=== PATIENT | male | born 1975 | race African-American/Black ===

== ENCOUNTER 2023-04-24 15:17 | Outpatient (REF) | payer MEDICAID, SELFPAY ==
--- NOTE | ~2023-04-24 | US_ITS ---
EXAMINATION: US SCROTUM CLINICAL INFORMATION: Enlarged scrotal sac. COMPARISON: None available. TECHNIQUE: A sonogram of the scrotum was performed assessing fair-scale appearance and color Doppler flow. Spectral Doppler analysis of the arterial and venous flow were performed in the testes bilaterally. FINDINGS: RIGHT: Right testicle measures 5.8 x 3.6 x 3.6 cm, volume 39.7 mL. 3 mm intratesticular calcification. Spectral Doppler analysis of the arterial and venous flow is normal in the right testis. Tiny right epididymal cyst. Right epididymal appendix. No right varicocele is seen. Complex right hydrocele. LEFT: Left testicle measures 5.4 x 3.0 x 3.2 cm, volume 27.5 mL. 2 mm interest testicular calcification. Left testicular appendix. Spectral Doppler analysis of the arterial and venous flow is normal in the left testis. Left epididymal head is normal in size. No left varicocele is seen. Complex left hydrocele. US/US scrotum IMPRESSION: Bilateral testicular microlithiasis. Bilateral complex hydroceles. Tiny right epididymal cyst.
== END 2023-04-24 15:18 | disposition home or self-care (01) ==
LOC: HO.US 15:17
PROVIDERS: Visit Provider Pediatrics
DX: N50.89 Other specified disorders of the male genital organs (principal)
CPT/HCPCS: 76870

== ENCOUNTER 2023-05-18 12:57 | Outpatient (AMB) | payer MEDICAID, SELFPAY ==
--- NOTE | 2023-05-18 13:08 | MHC.OFFVIS ---
Intake Vital Signs 05/18/23 13:11 Height 5 ft 10.08 in Weight 195 lb BMI 27.9 BP 142/92 H Blood Pressure Location Lt brachial Position Sitting Pulse 106 H Intake Visit Reasons: Enlargement of scrotal sac, ? hernia Intake Note: This patient presents for an assessment for question of hernia. Patient c/o; reports abdominal pain, reports discomfort. Grades 1 6 Tutor Required: Yes Grades 1 6 Tutor Language: Equities Trader Name: Fallon Information Interpreted: non-clinical & clinical Accompanied by: Self / Same As Patient Allergies No Known Allergies Allergy (Verified 05/18/23 13:11) Medication List - Last Reconciled 05/18/23 by Sanchez Lou MD No Known Home Meds HPI Enlargement of scrotal sac, ? hernia HPI Details 47-year-old male referred for a right inguinal hernia. He has noticed this reducible mass on his right groin all the way to the scrotum for the past 4-5 years now. He describes discomfort. He does state that this becomes bigger with physical exertion. He denies GI complaints. He denies any other medical complaints. [facility] Medical History (Updated 05/18/23 @ 13:49 by Sanchez Lou MD) Right inguinal hernia Surgical History No pertinent past surgical history Social History Alcohol intake: never Patient Tobacco Use Status: Never used Tobacco Review of Systems Const Denies chills and Denies fever(s) Card Denies chest pain, Denies dyspnea and Denies dyspnea on exertion Resp Denies cough, Denies dyspnea and Denies dyspnea on exertion GI Denies hematochezia and Denies change in bowel habits Denies hematuria and Denies difficulty urinating Musc Denies back pain and Denies limited range of motion Neuro Denies focal weakness and Denies convulsions Psych Denies depression and Denies mood swings Physical Exam Vital Signs: Last Vital Signs Pulse 106 H 05/18/23 13:11 BP 142/92 H 05/18/23 13:11 BMI result Body Mass Index 27.9 Const General: comfortable and no acute distress Orientation/consciousness: patient oriented x3 Neck Neck: Yes no lymphadenopathy Resp Auscultation: clear to auscultation bilaterally Cardio Rhythm: regular rhythm GI Other: Large right inguinal scrotal hernia, reducible , reproducible with Valsalva Palpation (GI): Soft to palpation, nontender and no guarding Neuro General: patient oriented x3 Assessment & Plan Assessment & Plan (1) Right inguinal hernia: Code(s): K40.90 - Unilateral inguinal hernia, without obstruction or gangrene, not specified as recurrent Plan: He has a large right inguinoscrotal hernia. This actually is reducible. I had a long discussion with him about the technique of repair with mesh. I discussed the risks including but not limited to bleeding, infections, recurrence, injury to other organs including bowel, vas deferens and the testicle, as well as the benefits and alternatives. He says he wants to proceed with repair as this has been ongoing for many years. Coding Level of Care Code New Pt Level 3 (13412) Diagnoses Right inguinal hernia K40.90
[2023-05-18 13:11] VITALS: BP 142/92; PULSE 106; BMI 27.9
== END 2023-05-18 13:54 | disposition home or self-care (01) ==
PROVIDERS: PCP Nurse Practitioner Primary Care; Visit Provider Surgery
DX: K40.90 Unilateral inguinal hernia, without obstruction or gangrene, not specified as recurrent (principal)
CPT/HCPCS: 99203

== ENCOUNTER → 2023-05-18 12:57 | Outpatient (BNVA) | payer MEDICAID, SELFPAY | PROVIDERS: PCP Nurse Practitioner Primary Care; Visit Provider Surgery | DX: K40.90 Unilateral inguinal hernia, without obstruction or gangrene, not specified as recurrent (principal) | CPT/HCPCS: 99202 ==

== ENCOUNTER 2023-06-13 07:10 | Day surgery (SDC) | payer MEDICAID, SELFPAY ==
[2023-05-26 12:24] VITALS: BMI 28.0
--- NOTE | 2023-05-29 08:34 | HO.ANESPROP2 ---
Documented by User: Tigist Fiore NP 06/06/23 13:34 HPI - Anesthesia Eval Consult details Narrative: 47yo M for Open Hernia Repair Inguinal w/mesh, 06/13/23 [facility] Active Problems Active Problems: All Active Problems (Updated 05/18/23 @ 13:49 by Sanchez Lou MD) Right inguinal hernia (Acute) Past Medical History Medical History Right inguinal hernia Surgical History Surgical History No pertinent past surgical history Social History Social History Alcohol intake: never Patient Tobacco Use Status: Never used Tobacco Use of substances other than those prescribed or required for medical reasons: No Are you DNR?: No Advance Directives: No Advance Directives Information Provided: Yes Advance Directives on File: No Poor oral hygiene: No Meds Allergies Allergy/AdvReac Type Severity Reaction Status Date / Time No Known Allergies Allergy Verified 05/18/23 13:11 Home Medications Medication Instructions Recorded Confirmed Last Taken Type No Known Home Meds 05/18/23 05/26/23 Unknown History Exam Height,Weight and Vital Signs: Height 5 ft 10 in Weight 88.451 kg Assessment and Plan Assessment Anesthesia Assessment: Chart Reviewed Documented by User: Aurora Draper MD 06/13/23 08:37 [facility] Past Medical History Medical History Right inguinal hernia Functional capacity: bed bound Surgical History Surgical History No pertinent past surgical history History of Problems with Anesthesia: No Social History Social History Alcohol intake: never Patient Tobacco Use Status: Never used Tobacco Use of substances other than those prescribed or required for medical reasons: No Are you DNR?: No Advance Directives: No Advance Directives Information Provided: Yes Advance Directives on File: No Poor oral hygiene: No Meds Allergies Allergy/AdvReac Type Severity Reaction Status Date / Time No Known Allergies Allergy Verified 05/18/23 13:11 Home Medications Medication Instructions Recorded Confirmed Last Taken Type No Known Home Meds 05/18/23 05/26/23 Unknown History Exam Airway Mallampati Class: II TM Dist: >3cm Neck ROM: Full Loose/Missing/Broken Teeth: No Heart: RRR Lungs: CTA Assessment and Plan Assessment Anesthesia Assessment: Anesthesia Plan Discussed Final Anesthetic Review History of Problems with Anesthesia: No NPO: Yes ASA Class: I Final Preanesthetic Review: Meds/Allgs Chart Reviewed, Consent Obtained/Reviewed and Anes Risks/Benef Reviewed Patient Risk: Low Procedure Risk: Low Anesthetic Plan Anesthetic Plan: GA Disposition: Standard PACU
[2023-06-13] VITALS (7 sets, daily range): BP systolic 124–149; BP diastolic 88–109; PULSE 63–95; RESP 14–16; TEMP 36.3–37.2; O2SAT 96–98; BMI 28.4
[2023-06-13] MEDS: Lactated Ringers 1,000 ML 100 ML IVCONT (08:17)
--- NOTE | 2023-06-13 08:42 | MHC.SHP ---
Pre-Procedural Eval Section A Date of Service: 06/13/23 The patient is an INPATIENT: No Changes since office visit: Yes Cold of Flu in the past 2 weeks, Yes New Medical Problems, Yes Changes in Medication and Yes Patient answered all questions The History & Physical has been completed within 30 days and I have reviewed it.: Yes Section B Chief Complaint: Unilateral inguinal hernia, without obstruction or Allergies: Allergies Allergy/AdvReac Type Severity Reaction Status Date / Time No Known Allergies Allergy Verified 05/18/23 13:11 Plan I have reviewed the history and physical and performed a pertinent physical examination on my patient. No changes have occurred unless specified. Time Spent With Patient Time: Total time managing care of this patient today ____ minutes.
--- NOTE | 2023-06-13 09:48 | P.OP_ITS ---
Operative Note Operative Note Date of Service: 06/13/23 Narrative: Preop diagnosis: Right inguinal hernia Postop diagnosis: Right inguinal hernia, indirect Procedure: Repair of a right inguinal hernia with mesh Surgeon: Sanchez Lou MD The patient is a [id number] male, with a right inguinal hernia containing fat. This was partially reducible on exam. He understood the technique of repair with mesh. He was aware of the risks, benefits, and alternatives. He was brought to the operating room. Was placed supine under general anesthesia via laryngeal mask airway. The right groin was prepped and draped in the usual sterile fashion. A surgical time-out was done. The patient received cefazolin 2 g IV preoperatively . I infiltrated the planned line of incision with lidocaine 1%. I made a short incision along an imaginary line from the anterior superior iliac spine to the pubic ramus using a blade 15. This was carried down through the full-thickness of the skin and subcutaneous fat with electrocautery. I visualized the external oblique aponeurosis. I bluntly dissected this with a gauze to expose the external ring. I then made an incision on the external oblique aponeurosis using a blade 15 and extended this inferomedially to connect with the external ring. The inguinal canal was therefore entered . I bluntly dissected the spermatic cord and its contents with an index finger until I was able to pass a [place] drain around this. This [place] drain was used for retraction. I identified the vas deferens and its accompanying vessels. I was able to visualized the care very large fat containing hernia. This was markedly adherent to the rest of the cord contents. We had to do a lot of gentle blunt dissection to separate the hernia sac from the rest of the cord contents. At some point, there was note of a lot of what appeared to be lipomatous tissue that was very adherent and we it got to oozing when he attempted to separate this from the rest of the cord contents. At this time, therefore, we were able to actually reduced the large hernia. I decided to leave this fat along the cord because of the risk of injury to the of the cord contents with more aggressive dissection. I reduced the entire sac and its contents. I reinforced the internal ring with a medium-sized blood. This was therefore indirect hernia. The plug was secured with Prolene 2 sutures to the shelving edge of the inguinal ligament laterally, and the internal oblique superiorly and medially using the inner leaves of the plug. I then used a keyhole mesh to reinforce the entire floor. The tails of the mesh were passed around the cord at the level of the internal ring. I secured these together with Prolene 2 sutures. I then secured the mesh to the shelving edge of the inguinal meant laterally and the internal oblique superiorly and medially as well as the pubic ramus inferomedially with Prolene 2-0 sutures . I observed for hemostasis. I then irrigated. Once hemostasis was confirmed, I closed the external oblique aponeurosis with a running Polysorb 2-0 stitch to re-create the external ring. The subcutaneous layer was reapposed with Polysorb 3-0 interrupted sutures. Skin closure was achieved with Polysorb 4-0 subcuticular running stitch. The area was then infiltrated with Marcaine 0.5% for postop analgesia. Dressings were applied. The procedure was completed . The patient tolerated procedure well. There were no immediate complications. Initial and final counts of sponges and instruments were correct. Estimated blood loss was about 25 cc. The patient was extubated without difficulty and transferred to the recovery room with stable vital signs.
[2023-06-13] MEDS: Acetaminophen 325 MG TABLET 650 MG PO (10:30)
[2023-06-13] MEDS: Ketorolac Tromethamine 30 MG/ML VIAL 15 MG IVPUSH (10:33)
== END 2023-06-13 13:08 | disposition home or self-care (01) ==
PROVIDERS: PCP Nurse Practitioner Primary Care; Visit Provider Surgery
PROC: (CPT 49505; principal; 2023-06-13 09:10)
DX: K40.90 Unilateral inguinal hernia, without obstruction or gangrene, not specified as recurrent (principal)
CPT/HCPCS: 49505; C1781; J0690; J1885; J2405; J2704; J2795; J3010

== ENCOUNTER → 2023-06-13 07:10 | Outpatient (BNV) | payer MEDICAID, SELFPAY | PROVIDERS: PCP Nurse Practitioner Primary Care; Visit Provider Surgery | DX: K40.90 Unilateral inguinal hernia, without obstruction or gangrene, not specified as recurrent (principal) | CPT/HCPCS: 49505 ==

== ENCOUNTER 2023-06-26 13:17 | Outpatient (AMB) | payer MEDICAID, SELFPAY ==
[2023-06-26 13:36] VITALS: BP 146/86; PULSE 113
--- NOTE | 2023-06-26 13:36 | MHC.OFFVIS ---
Intake Vital Signs 06/26/23 13:36 Weight 196 lb BP 146/86 H Blood Pressure Location Rt brachial Position Sitting Pulse 113 H Intake Visit Reasons: S/P RIH w/mesh Intake Note: This patient presents for a post-op assessment status post right inguinal hernia repair with mesh. (06/13/23) Patient c/o; reports occasional pain. Production Bow Maker Required: Yes Production Bow Maker Language: Bacon Skin Lifter Name: Fallon Information Interpreted: non-clinical & clinical Accompanied by: Self / Same As Patient Allergies No Known Allergies Allergy (Verified 06/26/23 13:37) HPI S/P RIH w/mesh HPI Details He underwent repair of a right inguinal hernia with mesh last 06/13/2023. He tolerated procedure well. He says he did have some pain for the 1st 2 days but says he is much better now. He does describe occasional sharp pains on the area. [facility] Medical History Right inguinal hernia Surgical History History of right inguinal hernia repair No pertinent past surgical history Social History Alcohol intake: never Patient Tobacco Use Status: Never used Tobacco Review of Systems Const Denies chills and Denies fever(s) Card Denies chest pain, Denies dyspnea and Denies dyspnea on exertion Resp Denies cough, Denies dyspnea and Denies dyspnea on exertion GI Denies hematochezia and Denies change in bowel habits Denies hematuria and Denies difficulty urinating Musc Denies back pain and Denies limited range of motion Neuro Denies focal weakness and Denies convulsions Psych Denies depression and Denies mood swings Physical Exam Vital Signs: Last Vital Signs Pulse 113 H 06/26/23 13:36 BP 146/86 H 06/26/23 13:36 Const General: comfortable and no acute distress Resp Effort & Inspection: normal respiratory effort GI Other: Right inguinal hernia repair site is well healed, repair intact, a little edema of the right scrotum, otherwise no significant tenderness Assessment & Plan Assessment & Plan (1) Right inguinal hernia: Code(s): K40.90 - Unilateral inguinal hernia, without obstruction or gangrene, not specified as recurrent Plan: Status post repair with mesh. The incision is well healed. The repair is intact. I advised him to avoid any lifting more than 20 lb for at least a full month from his date of surgery I did tell him that he can call the office for follow-up if he has questions or concerns. He can otherwise follow up on a p.r.n. basis. Coding Level of Care Code Global (72358) Diagnoses Right inguinal hernia K40.90
== END 2023-06-26 13:51 | disposition home or self-care (01) ==
PROVIDERS: PCP Nurse Practitioner Primary Care; Visit Provider Surgery
DX: K40.90 Unilateral inguinal hernia, without obstruction or gangrene, not specified as recurrent (principal)
CPT/HCPCS: 99024

== ENCOUNTER → 2023-06-26 13:17 | Outpatient (BNVA) | payer MEDICAID, SELFPAY | PROVIDERS: PCP Nurse Practitioner Primary Care; Visit Provider Surgery | DX: Z48.815 Encounter for surgical aftercare following surgery on the digestive system (principal); Z98.890 Other specified postprocedural states | CPT/HCPCS: 99212 ==

== ENCOUNTER 2023-07-12 12:39 | Outpatient (AMB) | payer MEDICAID, SELFPAY ==
--- NOTE | 2023-07-12 12:40 | A.OFFVIS_ITS ---
Intake Vital Signs 07/12/23 12:46 Weight 193 lb BP 135/84 Blood Pressure Location Rt brachial Position Sitting Pulse 108 H Intake Visit Reasons: s/p RIH repair, pain x3 days Intake Note: This patient presents for an assessment for a follow-up status post right inguinal hernia repair. Patient c/o; reports pain surgical site for the past 4 days, reports noticed pain when was showering 4 days ago, reports no changes in bowel habits. Reimbursement Auditor Required: Yes Reimbursement Auditor Language: Master Control Engineer Name: DionneMARGARET Information Interpreted: non-clinical & clinical Accompanied by: Self / Same As Patient Allergies No Known Allergies Allergy (Verified 07/12/23 12:49) HPI HPI Comments History of Present Illness Details Patient is status post open right inguinal hernia repair. Presents here because some persistent incisional discomfort. He has no other GI issues or complaints. He is increasing his activity level. [facility] Medical History Right inguinal hernia Surgical History History of right inguinal hernia repair No pertinent past surgical history Social History Alcohol intake: never Patient Tobacco Use Status: Never used Tobacco Physical Exam Vital Signs: Last Vital Signs Pulse 108 H 07/12/23 12:46 BP 135/84 07/12/23 12:46 GI Other: Abdomen soft. Incision clean dry and intact. No evidence of any infection or cellulitis or recurrence. Assessment & Plan Assessment & Plan (1) Status post hernia repair: Code(s): Z98.890 - Other specified postprocedural states; Z87.19 - Personal history of other diseases of the digestive system Plan Patient was reassured that he is still early in the postoperative process. He will take another 2-6 weeks before he is fully healed. He is to avoid strenuous activities for next few weeks time. He would like a renewal of Motrin which will be done. All questions answered. Patient will follow-up p.r.n.. Coding Level of Care Code New Pt Level 3 (03373) Diagnoses Status post hernia repair Z98.890; Z87.19
[2023-07-12 12:46] VITALS: BP 135/84; PULSE 108
== END 2023-07-12 13:56 | disposition home or self-care (01) ==
PROVIDERS: PCP Nurse Practitioner Primary Care; Visit Provider Surgery
DX: Z98.890 Other specified postprocedural states (principal); Z87.19 Personal history of other diseases of the digestive system
CPT/HCPCS: 99024

== ENCOUNTER → 2023-07-12 12:39 | Outpatient (BNVA) | payer MEDICAID, SELFPAY | PROVIDERS: PCP Nurse Practitioner Primary Care; Visit Provider Surgery | DX: Z87.19 Personal history of other diseases of the digestive system (principal); Z98.890 Other specified postprocedural states | CPT/HCPCS: 99212 ==